=== PATIENT | male | born 1985 | race Caucasian/White ===

== ENCOUNTER 2018-09-13 17:01 | Emergency (ER) | payer OTHER ==
[~2018-09-13] VITALS: Ht 177.8 cm; Wt 113.4 kg
[2018-09-13] MEDS ORDERED: MOBIC7.5 MG PO (18:26)
[2018-09-13 18:42] VITALS: BP 146/92
== END 2018-09-13 18:40 | disposition home or self-care (01) ==
LOC: ER 17:01
DX: M79.641 Pain in right hand (principal)

== ENCOUNTER 2020-11-07 08:45 | Emergency (ER) | payer OTHER ==
[~2020-11-07] VITALS: Ht 177.8 cm; Wt 113.4 kg
[~2020-11-07 08:45] MED LIST: MOBIC7.5 MG PO
[2020-11-07] MEDS ORDERED: MOBIC15 MG PO (10:21)
[2020-11-07 10:53] VITALS: BP 138/95
== END 2020-11-07 10:53 | disposition home or self-care (01) ==
LOC: ER 08:45
DX: S63.615A Unspecified sprain of left ring finger, initial encounter (principal); M54.9 Dorsalgia, unspecified; Z88.0 Allergy status to penicillin; V48.0XXA Car driver injured in noncollision transport accident in nontraffic accident, initial encounter; Y93.I9 Activity, other involving external motion; Y92.488 Other paved roadways as the place of occurrence of the external cause; Y99.8 Other external cause status

== ENCOUNTER 2020-11-20 16:37 | Emergency (ER) | payer OTHER ==
[~2020-11-20] VITALS: Ht 177.8 cm; Wt 113.4 kg
[~2020-11-20 16:37] MED LIST changes: +MOBIC15 MG PO
[2020-11-20] MEDS ORDERED: IBUPROFEN 800800 MG PO (18:48)
[2020-11-20 19:02] VITALS: BP 145/87
== END 2020-11-20 19:03 | disposition home or self-care (01) ==
LOC: ER 16:37
DX: S63.615D Unspecified sprain of left ring finger, subsequent encounter (principal); V89.2XXD Person injured in unspecified motor-vehicle accident, traffic, subsequent encounter; Z88.0 Allergy status to penicillin